=== PATIENT | male | born 1930 | race Caucasian/White ===

== ENCOUNTER 2018-04-28 09:59 | Day surgery (SDC) | payer MEDICARE ==
[~2018-04-28 09:59] MED LIST: Buffered Lidocaine 0.9% SYRIN* 5 ML/SYR SYRINGE INTRADERM ONE
[2018-04-28] MEDS ORDERED: Neomycin/Polymy/Dex OPTH.SUSP* MAXITROL 0.1% 5 ML ONE ×2 (12:23→12:24)
[2018-04-28] MEDS ORDERED: Lidocaine 1%* 5 ML VIAL ONE ×2 (12:23→12:24)
[2018-04-28] MEDS ORDERED: Cyclopentolate 1% OPTH.SOL* 2 ML BTL ONE ×2 (12:23→12:24)
[2018-04-28] MEDS ORDERED: Lidocaine 2% EPI 1:200000 MPF*10-20 ML VIAL ONE ×2 (12:23→12:24)
[2018-04-28] MEDS ORDERED: acetaZOLAMIDE TAB* 250 MG ONE ×2 (12:23→12:24)
[2018-04-28] MEDS ORDERED: Ketorolac 0.5% OPHTH (NF) 0.5 % 5 ML BTL ONE (12:24)
[2018-04-28] MEDS ORDERED: Proparacaine 0.5% OPHTH.SOL* 15 ML BTL ONE (12:24)
[2018-04-28] MEDS ORDERED: Phenylephrine 2.5% OPTH.SOL* 2 ML BTL ONE (12:24)
[2018-04-28] MEDS ORDERED: Povidone Iodine 5% OPTH* 30 ML BTL ONE (12:24)
[2018-04-28] MEDS ORDERED: Lidocaine 2% PF * 5 ML VIAL ONE (12:27)
[2018-04-28] MEDS ORDERED: Propofol* 10 MG/ML 20 ML BTL IV PUSH ONE (12:27)
[2018-04-28 13:00] VITALS: BP 158/79
--- NOTE | 2018-04-29 09:16 | OP ---
DATE OF OPERATION: 04/28/18 - [facility] DATE OF : 32 SURGEON: Robin Claire M.D. PREOPERATIVE DIAGNOSIS: Cataract, left eye. POSTOPERATIVE DIAGNOSIS: Cataract, left eye OPERATIVE PROCEDURE: Extracapsular cataract extraction with intraocular lens implant left eye. DESCRIPTION OF PROCEDURE: The patient was brought to the operating room after being given 1/2% Alcaine with epinephrine drops in the preoperative area. The eye was prepped and draped in the usual sterile fashion. Sterile drape and eyelid speculum were placed. Again, topical 1/2% Alcaine with epinephrine was given. A paracentesis incision was made at the 3 o'clock position with the No.75 blade. Clear cornea incision 2.2 x 2.2-mm was created at the 6 o'clock position starting at the anterior limbus using the 2.2-mm keratome. The anterior chamber was irrigated with 0.4 mL of 1% non-preservative intracameral lidocaine and filled with DisCoVisc. A capsulorrhexis was completed using the cystotome and the Utrata forceps. Hydrodissection was performed with balanced salt solution. The lens nucleus was removed with the Phacoemulsification handpiece without incident. Cortex was removed with the irrigation-aspiration handpiece. The capsular bag was re-inflated using DisCoVisc and an [id number] 22 implant was inserted with the shooter. The pupil was only 3 mm, so a Malyugin ring was used to dilate the pupil prior to capsulorrhexis, removed after insertion of the lens. The irrigation-aspiration handpiece was used to remove all residual DisCoVisc. The eye was refilled with balanced salt solution and the wound checked and found to be watertight. Topical Maxitrol drops were given. Indication for complex cataract surgery: Pupillary abnormalities requiring pupil dilation device. [id number]/[facility] #: [id number] SRINIVASAN
== END 2018-04-28 13:12 | disposition home or self-care (01) ==
LOC: OREAST 09:59
PROVIDERS: ATTEND Specialist
DX: Z01.818 Encounter for other preprocedural examination (principal); H25.813 Combined forms of age-related cataract, bilateral; H35.3223 Exudative age-related macular degeneration, left eye, with inactive scar; H35.3111 Nonexudative age-related macular degeneration, right eye, early dry stage; H25.23 Age-related cataract, morgagnian type, bilateral; C61 Malignant neoplasm of prostate; E78.00 Pure hypercholesterolemia, unspecified
CPT/HCPCS: A9270-GY; J2704; V2632

== ENCOUNTER 2018-05-12 08:27 | Day surgery (SDC) | payer MEDICARE ==
[~2018-05-12 08:27] MED LIST changes: +Acetaminophen TAB* 325 MG PO PRN
[2018-05-12] MEDS ORDERED: acetaZOLAMIDE TAB* 250 MG ONE (09:56)
[2018-05-12] MEDS ORDERED: Lidocaine 2% EPI 1:200000 MPF*10-20 ML VIAL ONE (09:56)
[2018-05-12] MEDS ORDERED: Cyclopentolate 1% OPTH.SOL* 2 ML BTL ONE (09:56)
[2018-05-12] MEDS ORDERED: Lidocaine 1%* 5 ML VIAL ONE (09:56)
[2018-05-12] MEDS ORDERED: Ketorolac 0.5% OPHTH (NF) 0.5 % 5 ML BTL ONE (09:56)
[2018-05-12] MEDS ORDERED: Neomycin/Polymy/Dex OPTH.SUSP* MAXITROL 0.1% 5 ML ONE (09:56)
[2018-05-12] MEDS ORDERED: Phenylephrine 2.5% OPTH.SOL* 2 ML BTL ONE (09:56)
[2018-05-12] MEDS ORDERED: Povidone Iodine 5% OPTH* 30 ML BTL ONE (09:56)
[2018-05-12] MEDS ORDERED: Proparacaine 0.5% OPHTH.SOL* 15 ML BTL ONE (09:57)
[2018-05-12] MEDS ORDERED: Midazolam* 1 MG/ML 2 ML VIAL (2 MG) ONE (10:08)
[2018-05-12] MEDS ORDERED: fentaNYL* 50 MCG/ML 2 ML VIAL (100 MCG VIAL) ONE (10:08)
[2018-05-12] MEDS ORDERED: Propofol* 10 MG/ML 20 ML BTL IV PUSH ONE (10:24)
[2018-05-12] MEDS ORDERED: Lidocaine 2% MPF* 2 ML VIAL ONE (10:24)
[2018-05-12 10:59] VITALS: BP 137/76
--- NOTE | 2018-05-12 13:15 | OP ---
OPERATIVE NOTE: DATE OF OPERATION: 05/12/18 DATE OF : 32. SURGEON: Robin Claire M.D. PREOPERATIVE DIAGNOSIS: Cataract, right eye. POSTOPERATIVE DIAGNOSIS: Cataract, right eye. OPERATIVE PROCEDURE: Extracapsular cataract extraction with intraocular lens implant right eye. PROCEDURE: The patient was brought to the operating room after being given 1/2 % Alcaine with epinephrine drops in the preoperative area. The eye was prepped and draped in the usual sterile fashion. Sterile drape and eyelid speculum were placed. Again, topical 1/2% Alcaine with epinephrine was given. A paracentesis incision was made at the 9 o'clock position with the No.75 blade. Clear cornea incision 2.2 x 2.2-mm was created at the 12 o'clock position starting at the anterior limbus using the 2.2-mm keratome. The anterior chamber was irrigated with 0.4 mL of 1% non-preservative intracameral lidocaine and filled with DisCoVisc. A capsulorrhexis was completed using the cystotome and the Utrata forceps. Hydrodissection was performed with balanced salt solution. The lens nucleus was removed with the Phacoemulsification handpiece without incident. Cortex was removed with the irrigation-aspiration handpiece. The capsular bag was re-inflated using DisCoVisc and an [id number] 22.0 implant was inserted with the shooter. The pupil was only 3 mm, so a Malyugin ring was placed prior to capsulorrhexis, removed after insertion of the lens. The irrigation-aspiration handpiece was used to remove all residual DisCoVisc. The eye was refilled with balanced salt solution and the wound checked and found to be watertight. Topical Maxitrol drops were given. Indiction for complex cataract surgery: Pupillary abnormalities requiring pupil dilation device. [id number]/[facility] #: [id number] MTDAngelina
== END 2018-05-12 11:10 | disposition home or self-care (01) ==
LOC: OREAST 08:27
PROVIDERS: ATTEND Specialist
DX: H25.811 Combined forms of age-related cataract, right eye (principal); H21.561 Pupillary abnormality, right eye; H35.3111 Nonexudative age-related macular degeneration, right eye, early dry stage; H35.3221 Exudative age-related macular degeneration, left eye, with active choroidal neovascularization; Z85.46 Personal history of malignant neoplasm of prostate; Z85.828 Personal history of other malignant neoplasm of skin; E78.5 Hyperlipidemia, unspecified; Z86.73 Personal history of transient ischemic attack (TIA), and cerebral infarction without residual deficits; Z79.899 Other long term (current) drug therapy
CPT/HCPCS: A9270-GY; J2250; J2704; J3010; V2632

== ENCOUNTER 2018-05-23 10:07 | Emergency (ER) | payer MEDICARE ==
[2018-05-23 11:01] LABS: ABS Basophils 0 10^3/ul (0-0.2); ABS Eosinophils 0 10^3/ul (0-0.6); ABS Lymphocytes 0.7 10^3/ul (1.0-4.8); ABS Monocytes 0.6 10^3/ul (0-0.8); ABS Neutrophils 4.6 10^3/ul (1.5-7.7); ABS Nucleated RBC 0 10^3/ul; Eosinophil % 0.6 % (0-6); Hematocrit 41 % (42-52); Lymphocyte % 11.1 % (25-47); Mean Corpuscular HGB Conc 34 g/dl (31-36); Mean Corpuscular Hemoglobin 33 pg (27-31); Mean Corpuscular Volume 97 fL (80-94); Mean Platelet Volume 6.8 um3 (7.4-10.4); Nucleated Red Blood Cells % 0.1; Platelet Count 247 10^3/ul (150-450); Red Blood Count 4.21 10^6/ul (4.00-5.40); Red Cell Distribution Width 13 % (10.5-15)
--- NOTE | 2018-05-23 11:01 | ED ---
Neurological HPI - HPI Summary HPI Summary: Patient is an 87-year-old male with a history of a few TIA's and stroke x 9 years ago presenting to the ED with tingling to the outside of the right ear extending only slightly into the cheek just below the TMJ. He denies any other neuro deficits. He states he awoke on Thursday (5 days ago) and felt the tingling into the ear without headache, weakness, dizziness, slurred speech, facial droop, confusion, memory loss. He states he is otherwise at his baseline. He did not come on Thursday because he had taken an aggrenox and felt there would be nothing that the ED could do. Symptoms are not aggravated or alleviated with rest or positioning. Daughters are at bedside. Denies any recent infection, hospitalization, fevers, sweats, chills. He states he is independent, lives alone and is otherwise generally healthy. He takes Aggrenox daily and has been on this medication since his stroke 9 years ago. He has not been seen by our neurologists as he has been living in [place]. Currently lives in [place]. Only significant change to medication was 1 week prior to this incident, he discontinued his Aggrenox for a few days leading up to cataract surgery. - History of Current Complaint Chief Complaint: EDGeneral Stated Complaint: POSS. STROKE Time Seen by Provider: 05/23/18 10:21 Hx Obtained From: Patient Onset/Duration: Gradual Onset Timing: Constant Onset Severity: Mild Current Severity: Mild Neurological Deficit Location: Facial - right sided facial tingling (over the outside of the ear) Pain Intensity: 0 Character: Numbness/Tingling Episode Lasting: Unknown - lasting 5 days, unresolved TPA Considered: No Related Hx: Anticoagulants - Allergy/Home Medications Allergies/Adverse Reactions: Allergies Allergy/AdvReac Type Severity Reaction Status Date / Time No Known Allergies Allergy Verified 05/23/18 10:20 Home Medications: Home Medications Ketorolac 0.5% OPHTH (NF) 1 drop RIGHT EYE DAILY 05/23/18 [History Confirmed ] Multivit-Min/FA/Lycopen/Lutein [Men 50 Plus Multivitamin Tab] 1 each PO DAILY [History Confirmed 05/23/18] Psyllium Husk [Eq Daily Fiber] 400 mg PO DAILY 05/23/18 [History Confirmed 05/23] prednisoLONE acetate [Pred Forte] 1 drop RIGHT EYE DAILY 05/23/18 [History Confirmed 05/23/18] PMH/Surg Hx/FS Hx/Imm Hx Previously Healthy: Yes Musculoskeletal History: Reports: Hx Arthritis - "STATES MILD" Sensory History: Reports: Hx Cataracts - BILATERAL, Hx Contacts or Glasses Denies: Hx Hearing Aid - BILATERAL Opthamlomology History: Reports: Hx Cataracts - BILATERAL, Hx Contacts or Glasses - Cancer History Cancer Type, Location and Year: PROSTATE CA - Surgical History Surgery Procedure, Year, and Place: 2010 & 2011 BILAT R-FLA. CHILD T&A Hx Anesthesia Reactions: No - Immunization History Hx Pertussis Vaccination: No Immunizations Up to Date: Unable to Obtain/Confirm Infectious Disease History: No Infectious Disease History: Denies: Traveled Outside the [place] in Last 30 Days - Social History Occupation: Unemployed Lives: Alone Alcohol Use: Occasionally Hx Substance Use: No Substance Use Type: Reports: None Hx Tobacco Use: No Smoking Status (MU): Never Smoked Tobacco Have You Smoked in the Last Year: No Review of Systems Constitutional: Negative Negative: Fever, Chills, Fatigue, Skin Diaphoresis Negative: Blurred Vision, Diplopia, Drainage Negative: Palpitations, Chest Pain Genitourinary: Negative Positive: no symptoms reported, see HPI Positive: Paresthesia - just to the right outer ear. Negative: Headache, Weakness, Numbness, Syncope, Slurred Speech Psychological: Normal All Other Systems Reviewed And Are Negative: Yes Physical Exam Triage Information Reviewed: Yes Vital Signs On Initial Exam: Initial Vitals Temp Pulse Resp BP Pulse Ox 97 F 91 16 149/86 93 05/23/18 10:17 05/23/18 10:17 05/23/18 10:17 05/23/18 10:17 05/23/18 10:17 Vital Signs Reviewed: Yes Appearance: Positive: Well-Appearing, No Pain Distress, Well-Nourished Skin: Positive: Warm, Skin Color Reflects Adequate Perfusion Head/Face: Positive: Normal Head/Face Inspection Eyes: Positive: EOMI, DENISSE, Conjunctiva Clear Neck: Positive: Supple, Nontender, No Lymphadenopathy Respiratory/Lung Sounds: Positive: Clear to Auscultation, Breath Sounds Present Cardiovascular: Positive: Normal, RRR, Pulses are Symmetrical in both Upper and Lower Extremities Neurological: Positive: Sensory/Motor Intact, Alert, Oriented to Person Place, Time, CN Intact II-III, Normal Gait, Heel to Toe, Finger to Nose, Facial Symmetry, Speech Normal Psychiatric: Positive: Normal, Affect/Mood Appropriate AVPU Assessment: Alert - [place] Coma Scale Best Eye Response: 4 - Spontaneous Best Motor Response: 6 - Obeys Commands Best Verbal Response: 5 - Oriented Coma Scale Total: 15 Diagnostics - Vital Signs Vital Signs Temp Pulse Resp BP Pulse Ox 05/23/18 10:54 93 05/23/18 10:19 92 149/86 93 05/23/18 10:17 97 F 91 16 149/86 93 - Laboratory Result Diagrams: 05/23/18 10:51 05/23/18 10:51 Lab Statement: Any lab studies that have been ordered have been reviewed, and results considered in the medical decision making process. 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 Attendant/Release Non-Paretic Hand: Both Correctly Best Gaze (Only Horizontal Eye Movement): Normal Visual Field Testing: No Visual Loss Facial Paresis-Pt to Smile & Close Eyes or Grimace Symmetry: Normal/Symmetrical Motor Function - Right Arm: No Drift-Holds 10 Seconds Motor Function - Left Arm: No Drift-Holds 10 Seconds Motor Function - Right Leg: No Drift-Holds 10 Seconds Motor Function - Left Leg: No Drift-Holds 10 Seconds Sensory (Use Pinprick to Test Arms/Legs/Trunk/Face): Normal Best Language (Describe Picture, Name Items): No Aphasia Dysarthria (Read Several Words): Normal NIH Stroke Scale Comment: NIH stroke scale = 0 Course/Dx - Course Course Of Treatment: During the course of treatment, the patient is evaluated for possible recent TIA versus stroke. NIH scale 0. CT brain: IMPRESSION: Age -related cortical involutional change with moderate chronic microvascular ischemic change. No acute findings. Labs are unremarkable. Discussed case with Dr. Valenzuela who suggests this may be trigeminal neuralgia and most likely not TIA/ stroke. However, Dr. Valenzuela will follow up with this this week. Patient made aware and will call Thursday for an appt. - Differential Dx Differential Diagnoses Neuro: Positive: Transient Ischemic Attack, Other - trigeminal neuralgia - Diagnoses Provider Diagnoses: Facial paresthesia - Physician Notifications Discussed Care Of Patient With: Rigoberto Valenzuela Discharge - Sign-Out/Discharge Documenting (check all that apply): Discharge/Admit/Transfer - Discharge Plan Condition: Stable Disposition: HOME Referrals: Rigoberto Valenzuela MD [Medical Doctor] - No Primary Care Phys,NOPCP [Primary Care Provider] - Additional Instructions: Please call Dr. valenzuela's office on Thursday Their office is aware that he will be calling They may schedule an MRI prior to your visit with Dr. Valenzuela If he develop any neuro deficits as discussed, slurred speech, worsening tingling to the face, arm droop or eyelid droop, return to the ED immediately Continue with all your medications as prescribed - Billing Disposition and Condition Condition: STABLE Disposition: Home
[2018-05-23 11:07] LABS: INR 0.94 (0.77-1.02)
--- NOTE | 2018-05-23 11:19 | RAD ---
INDICATION: Neuro deficit COMPARISON: None TECHNIQUE: Noncontrast axial source images were acquired from the skull base to the vertex. FINDINGS: Ventricles/sulci: There is cortical atrophy with compensatory dilatation of the CSF spaces. Brain parenchyma: There is moderate periventricular and subcortical white matter change compatible with chronic ischemia. Intracranial hemorrhage:None. Extra-axial spaces: There are no abnormal extra axial fluid collections or evidence of extra-axial mass. Calvarium: There is no calvarial fracture or other calvarial abnormality. Scalp: There is no evidence of scalp or extracalvarial soft tissue abnormality. Paranasal sinuses/mastoid: The paranasal sinuses and mastoid air cells are clear. Other: None. IMPRESSION: Age-related cortical involutional change with moderate chronic microvascular ischemic change. No acute findings.
[2018-05-23 11:26] LABS: EGFR Non-African American 74.3 (>60)
[2018-05-23 11:40] VITALS: BP 118/74
== END 2018-05-23 11:43 | disposition home or self-care (01) ==
LOC: ED 10:07
DX: R20.2 Paresthesia of skin (principal); Z86.73 Personal history of transient ischemic attack (TIA), and cerebral infarction without residual deficits; Z79.02 Long term (current) use of antithrombotics/antiplatelets; Z85.46 Personal history of malignant neoplasm of prostate
CPT/HCPCS: 36415; 70450; 80053; 83605; 84484; 85025; 85610; 93005; 99282